=== PATIENT | female | born 1955 | race Caucasian/White ===

== ENCOUNTER 2016-04-22 09:41 | Emergency (ER) | payer BC ==
[2016-04-22 09:52] VITALS: BP 108/63
[2016-04-22] MEDS ORDERED: ALBUTEROL SULFATE/IPRATROPIUM 3 ML NEBU IH ONE ×2 (10:06→10:08)
--- NOTE | 2016-04-22 10:14 | ERNOTE ---
Dyspnea - Date Date of Service: 04/22/16 - General Presenting Symptoms: shortness of breath Time Seen by Provider: 04/22/16 09:44 Source: patient Exam Limitations: no limitations - Immun/Allergies/Home Medications Allergies/Adverse Reactions: Allergies No Known Allergies Allergy (Unverified 04/22/16 09:52) Home Medications: HOME MEDICATIONS Albuterol Sulfate/Ipratropium [Duoneb 2.5-0.5MG/3ML Soln] 3 ml IH QID PRN #120 vial 04/22/16 [Last Taken Unknown] Fluticasone Propionate [Flonase] 1 spray NS DAILY #1 inhaler 04/22/16 [Last Taken Unknown] Guaifenesin/Dextromethorphan [Robitussin Cough-Chest Dm Liq] 118 ml PO 04/22/16 [Last Taken Unknown] Levofloxacin [Levaquin] 500 mg PO DAILY #14 tab 04/22/16 [Last Taken Unknown] Loratadine/Pseudoephedrine [Claritin-D 24 Hour Tablet] 1 each PO DAILY #30 tab.er.24h 04/22/16 [Last Taken Unknown] Nebulizer [Compact Ultrasonic Nebulizer] 1 each MC QID #1 kit 04/22/16 [Last Taken Unknown] - History of Present Illness Narrative: The night before last, she developed the following symptoms: Malaise, headache, rhinhorrhea, scratchy throat, cough, occasionally productive of clear phlegm, myalgias and arthralgias. Some of this is what she has every spring and fall, but the cough part is new. There have been no fever, chills or sweats. A few times in the past, she has used a metered dose inhaler, even in her teens, but there has been no formal diagnosis of asthma. There is a family history positive for sinus trouble. She herself smokes 1ppd cigarettes. O2 sat was 89-93% in the [facility] walkin clinic this morning, who sent her over to the 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 Initiating event: Reports: other Frequency of episodes: Reports: other Modifying Factors - (Improves): Reports: other - otc meds a little bit Modifying Factors (Worsens): Reports: activity Associated Symptoms-Dyspnea: Reports: cough Prior Treatment: Denies: recently seen Review of Systems - Review of Systems Constitutional: Present: malaise, decreased activity level EYE: Present: no symptoms reported ENT: Present: nose congestion, nasal drainage Respiratory: Present: shortness of breath, cough Cardiology: Present: no symptoms reported Gastrointestinal/Abdominal: Present: no symptoms reported Genitourinary: Present: no symptoms reported Musculoskeletal: Present: muscle pain, joint pain Skin: Present: no symptoms reported Neurological: Present: headache Endocrine: Present: no symptoms reported Hematologic/Lymphatic: Present: no symptoms reported Psych: Present: no symptoms reported All Other Systems: All systems neg except as marked - Patient's Past Medical History Patient History - Medical: No pertinent hx Patient History - Cardiac/Respiratory: No pertinent hx Patient History - Cancer: No Hx of Cancer Patient History - Surgical Procedures: Hysterectomy, Tubal Ligation, Other - colposcopy - Family History Father Family History - Cancer: Liver, Lung Mother Family History - Cancer: Pancreatic - Social History Living Situations: home Psych History: No pertinent hx Smoking Status: Current every day smoker Have you smoked in the past 12 months: Yes Alcohol Use: rarely Physical Exam - Physical Exam General Appearance: Present: wd/wn, alert, no apparent distress Eye Exam: Normal inspection: bilateral, PERRL: bilateral, EOMI: bilateral Ears, Nose, Throat: Present: normal ENT inspection, nasal congestion - pink nasal mucosa, looks allergic Neck: Present: normal inspection, nontender, supple Respiratory: Present: no respiratory distress, lungs clear Cardiovascular/Chest: Present: regular rate, rhythm, no murmur Gastrointestinal/Abdominal: Present: normal bowel sounds, nontender, nondistended, soft, no organomegaly Back Exam: Present: normal inspection Extremity Exam: Present: normal inspection, no edema Neurological Exam: Present: alert, oriented, normal mood/affect Skin Exam: Present: normal color, warm/dry ED Progress - Vital Signs Patient's Vital Signs:: I have reviewed the patient's vital signs. Vital Signs: Vital Signs 04/22/16 04/22/16 09:46 09:59 Temperature 37.6 C H Pulse Rate 93 68 Respiratory 16 Rate Blood Pressure 108/63 O2 Sat by Pulse 90 Oximetry - Progress/Reassessment Chief Complaint: Dyspnea Progress Note-Subjective: 04/22/16 10:55 Nebulizer treatment seemed to help her feel more comfortable Departure Clinical Impression: Bronchitis Allergic rhinitis Qualifiers: Allergic rhinitis trigger: unspecified Allergic rhinitis seasonality: non- seasonal Qualified Code(s): J30.89 - Other allergic rhinitis - Departure Disposition: Home self-care Condition: Good Instructions: Acute Bronchitis, Allergic Rhinitis Additional Instructions: Followup Dr. Monroy in 2 weeks. Don't smoke. Prescriptions: Albuterol Sulfate/Ipratropium [Duoneb 2.5-0.5MG/3ML Soln] 3 ml IH QID PRN #120 vial PRN Reason: tight chest or wheezing Fluticasone Propionate [Flonase] 1 spray NS DAILY #1 inhaler Levofloxacin [Levaquin] 500 mg PO DAILY #14 tab Loratadine/Pseudoephedrine [Claritin-D 24 Hour Tablet] 1 each PO DAILY #30 tab.er.24h Nebulizer [Compact Ultrasonic Nebulizer] 1 each MC QID #1 kit
--- OUTSIDE RECORDS SUMMARY | 2016-04-22 10:16 | XMS REPORT | Continuity of Care Document ---
:1955 Author Organization [facility] ([facility]) Address [address] [place] [address] Phone [phone] Care Team Providers Name Role Phone Provider, No-Primary Care Primary Care Provider Unavailable Source Comments This disclosure is being made pursuant to the Care Everywhere program, applicable federal and state laws, and may not contain all informaitonavailable regarding this patient.[facility] ([facility]) Active Allergies and Adverse Reactions No Active Allergies Current Medications Not on file Active Problems Not on file Social History Tobacco Use Types Packs/Day Years Used Date Never Assessed Last Filed Vital Signs Vital Sign Reading Time Taken Blood Pressure 110/72 06/19/2003 1:37 PM CDT Pulse 80 06/19/2003 1:37 PM CDT Temperature - - Respiratory Rate - - Height 1.645 m (5' 4.76") 05/12/2003 4:04 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
== END 2016-04-22 11:10 | disposition home or self-care (01) ==
LOC: ER 09:41
DX: J20.8 Acute bronchitis due to other specified organisms (principal); Z72.0 Tobacco use